=== PATIENT | female | born 1950 | race Asian ===

== ENCOUNTER 2019-01-01 17:21 | Observation (INO) | payer OTHER ==
[~2019-01-01] VITALS: Ht 152.4 cm; Wt 66.3 kg
[~2019-01-01 17:21] MED LIST: ASPI81TA52 PO; ATEN50TA PO; IPRA3AMP29 HHN; LAS20I IV; MET40I IV; METF500T24 PO; NIFE30TA66 PO
[2019-01-01] MEDS ORDERED: DEXTROSE 50% 50 ML SYRINGE IV ONE (20:00)
[2019-01-01] MEDS ORDERED: DEXTROSE 50% 50 ML SYRINGE ONE (20:01)
--- NOTE | 2019-01-01 20:42 | ERD ---
ER Documentation Chief Complaint Chief Complaint chest pain and left arm numbness HPI 68-year-old female with a history of hypertension and diabetes presenting with left-sided chest pain since yesterday with associated tingling in the l right arm. She has mild associated shortness of breath. No alleviating or exacerbating factors. The pain is intermittent, but frequent, nonexertional. ROS All systems reviewed and are negative except as per history of present illness. Medications Home Meds Reported Medications Glimepiride* (Glimepiride*) 4 Mg Tablet, 4 MG PO DAILY for 30 Days, #30 01/01/19 Losartan Potassium* (Losartan Potassium*) 50 Mg Tablet, 50 MG PO DAILY for 30 Days, #30 01/01/19 Amlodipine Besylate* (Amlodipine Besylate*) 5 Mg Tablet, 5 MG PO DAILY for 30 Days, #30 01/01/19 Lovastatin* (Lovastatin*) 10 Mg Tablet, 10 MG PO DAILY for 30 Days, #30 01/01/19 Metformin Hcl* (Metformin Hcl*) 500 Mg Tablet, 500 MG PO BID WITH MEALS, #30 TAB 01/28/16 Aspirin (Low Dose Aspirin) 81 Mg Tablet.dr, 81 MG PO DAILY, #30 TAB 01/28/16 Discontinued Reported Medications Metformin* (Glucophage*) 500 Mg Tab, 500 MG PO BID for 30 Days, #60 01/01/19 Atenolol* (Atenolol*) 50 Mg Tablet, 50 MG PO DAILY, #30 TAB 01/28/16 Discontinued Scripts Nifedipine* (Procardia XL*) 30 Mg Tabsr, 30 MG PO BID, #1 TAB Prov:CHRISTOPHER MONTOYA MD 01/29/16 Methylprednisolone Sodium Succinate (Solu-Medrol) 40 Mg Soln, 40 MG IV Q8, #1 Prov:CHRISTOPHER MONTOYA MD 01/29/16 Ipratropium-Albuterol (Ipratropium-Albuterol) 3 Ml Nebu, 3 ML HHN Q6H RESP THERAPY, #1 Prov:CHRISTOPHER MONTOYA MD 01/29/16 Furosemide* (Lasix*) 10 Mg/Ml Soln, 20 MG IV Q12H, #1 Prov:CHRISTOPHER MONTOYA MD 01/29/16 Allergies Allergies: Coded Allergies: No Known Allergy (Unverified , 01/01/19) PMhx/Soc History of Surgery: No Anesthesia Reaction: No Hx Neurological Disorder: No Hx Respiratory Disorders: Yes (SOB even with short distances) Hx Cardiac Disorders: Yes (HTN) Hx Psychiatric Problems: No Hx Miscellaneous Medical Probl: Yes (DM) Hx Alcohol Use: No Hx Substance Use: No Hx Tobacco Use: No Smoking Status: Never smoker FmHx Family History: No diabetes Physical Exam Vitals Vital Signs Date Temp Pulse Resp B/P (MAP) Pulse Ox O2 O2 Flow FiO2 Time Delivery Rate 01/01/19 86 20 159/77 99 Room Air 23:57 (104) 01/01/19 76 23:46 01/01/19 63 18 194/77 98 Room Air 21:11 (116) 01/01/19 73 19 179/79 97 Room Air 19:31 (112) 01/01/19 97.6 79 19 156/116 99 17:31 (129) Physical Exam Const: No acute distress Head: Atraumatic Eyes: Normal Conjunctiva ENT: Normal External Ears, Nose and Mouth. Neck: Full range of motion. No meningismus. Resp: Clear to auscultation bilaterally Cardio: Regular rate and rhythm, no murmurs. 2+ distal pulses in all 4 extremities Abd: Soft, non tender, non distended. Normal bowel sounds Skin: No petechiae or rashes Back: No midline or flank tenderness Ext: No cyanosis, or edema Neur: Awake and alert Psych: Normal Mood and Affect Result Diagram: 01/01/19200401/01/192004 Results 24 hrs Laboratory Tests Test 01/01/19 19:55 01/01/19 19:58 01/01/19 20:02 01/01/19 20:05 Bedside Glucose 41 mg/dL 52 mg/dL B-Type Natriuretic 280 PG/ML Peptide White Blood Count 11.1 10^3/ul Red Blood Count 4.50 10^6/ul Hemoglobin 12.3 g/dl Hematocrit 37.7 % Mean Corpuscular 83.8 fl Volume Mean Corpuscular 27.3 pg Hemoglobin Mean Corpuscular 32.6 g/dl Hemoglobin Concent Red Cell 13.3 % Distribution Width Platelet Count 337 10^3/UL Mean Platelet 9.8 fl Volume Immature 0.600 % Granulocytes % Neutrophils % 78.4 % Lymphocytes % 14.2 % Monocytes % 5.6 % Eosinophils % 0.9 % Basophils % 0.3 % Nucleated Red Blood 0.0 /100WBC Cells % Immature 0.070 10^3/ul Granulocytes # Neutrophils # 8.7 10^3/ul Lymphocytes # 1.6 10^3/ul Monocytes # 0.6 10^3/ul Eosinophils # 0.1 10^3/ul Basophils # 0.0 10^3/ul Nucleated Red Blood 0.0 10^3/ul Cells # Sodium Level 135 mmol/L Potassium Level 3.8 mmol/L Chloride Level 99 mmol/L Carbon Dioxide 24 mmol/L Level Anion Gap 12 Blood Urea Nitrogen 8 mg/dl Creatinine 0.71 mg/dl Est Glomerular > 60 mL/min Filtrat Rate mL/min Glucose Level 39 mg/dl Calcium Level 9.2 mg/dl Troponin I < 0.012 ng/ml Test 01/01/19 20:28 Bedside Glucose 150 mg/dL Current Medications Medications Dose Sig/Shyam Start Time Status Last (Trade) Ordered Route PRN Stop Time Admin Dose Reason Admin Dextrose 50 ml ONCE ONCE 01/01/19 DC 01/01/19 (D50w IV 20:00 20:06 Syringe) 01/01/19 20:01 Dextrose 50 ml STK-MED 01/01/19 DC (D50w ONCE .ROUTE 20:01 Syringe) 01/01/19 20:02 Ondansetron 4 mg ER BRIDGE 01/01/19 HCl (Zofran PRN IV 22:30 Inj) NAUSEA/VOMITI 01/02/19 22:29 NG 650 mg ER BRIDGE 01/01/19 Acetaminophen PRN PO 22:30 (Tylenol .MILD PAIN 01/02/19 22:29 Tab) 1-3 OR TEMP Procedures/MDM EMERGENT LABS AND DIAGNOSTIC STUDIES: Lab Results above were reviewed and interpreted by me. CBC: no anemia or evidence of infection Accu-Cheks showed hypoglycemia, this was treated BMP: Hyperglycemia, no evidence of clinically significant electrolyte ab normality, acidosis, renal failure Troponin within normal limits, not indicative of cardiac ischemia EKG: Rate/Rhythm: Normal sinus rhythm QRS, ST, T-waves: No changes consistent w/ acute ischemia Impression: No evidence of ischemia or arrhythmia EKG: Rate/Rhythm: Normal Sinus Rhythm QRS, ST, T-waves: QTC prolonged at 508 ms. No changes consistent w/ acute ischemia Impression: No evidence of ischemia or arrhythmia Radiology Results as interpreted by Radiology below were reviewed by Marcela Kee MD: Chest x-ray : No acute abnormalities Initial Nursing notes reviewed. Previous Medical Records requested via the Electronic Health Record. EMERGENCY DEPARTMENT COURSE / MEDICAL DECISION MAKING: Patients symptoms are concerning for a cardiac etiology. Other etiologies considered were PE, aortic dissection, pneumonia, pneumothorax, esophageal rupture. EKG showed no acute ischemia. Initial troponin negative. CXR grossly unremarkable. However patient has an intermediate risk of adverse events. Plan to admit for further evaluation. Patient is not safe for discharge and will need inpatient monitoring and further evaluation. Further workup will be deferred to the inpatient team. Accepting Care Team: Current data and ongoing care discussed. Time: Time of admission Primary Provider: CONSUELO Gutierrez MD Jan 01, 2019 20:42
[2019-01-01] MEDS ORDERED: AMLO-145 PO (21:01)
[2019-01-01] MEDS ORDERED: LOSA50TA14 PO (21:01)
[2019-01-01] MEDS ORDERED: LOVA10TA63 PO (21:01)
[2019-01-01] MEDS ORDERED: METF-849 PO (21:01)
[2019-01-01] MEDS ORDERED: GLIM4TAB PO (21:05)
[2019-01-01] MEDS ORDERED: ACETAMINOPHEN 325 MG TAB PO PRN (22:30)
[2019-01-01] MEDS ORDERED: ONDANSETRON 4 MG INJ IV PRN (22:30)
[2019-01-01 23:46] VITALS: PULSE 76
[2019-01-02] VITALS (12 sets, daily range): BP systolic 134–179; BP diastolic 69–81; PULSE 65–90; RESP 18–71; Ht 152.4 cm; Wt 66.3 kg
[2019-01-02] MEDS ORDERED: NITROGLYCERIN (SL) 0.4 MG TAB SL PRN (02:00)
[2019-01-02] MEDS ORDERED: ACETAMINOPHEN 325 MG TAB PO PRN (02:00)
[2019-01-02] MEDS ORDERED: ALBUTEROL/IPRATROPIUM (NEB) 3 ML AMP HHN PRN (02:00)
[2019-01-02] MEDS ORDERED: NACL 0.9% 3 ML SYG IV SCH (02:00)
--- NOTE | 2019-01-02 08:59 | HP ---
Date/Time of Note Date/Time of Note DATE: 01/02/19 TIME: 08:56 Assessment/Plan VTE Prophylaxis Risk score (from Ns)>0 risk: 6 SCD applied (from Ns): Yes Pharmacological prophylaxis: heparin Lines/Catheters IV [facility] Saline Lock Urinary Cath still in place: No Assessment/Plan Assessment/Plan 1. Chest pain: Rule out ACS -Telemetry monitoring -Supplemental oxygen, aspirin, statin. As needed nitro -Check A1c, fasting lipid and TSH in a.m. -2D echo and cardiology consult 2. Hypoglycemia: Most likely secondary to sulfonylurea -Hold metformin and sulfonylurea 3. Hypertension: Continue home meds. Adjust as needed 4. Dyslipidemia: Continue statin Result Diagram: 01/01/19200401/01/192004 Results 24hrs Laboratory Tests Test 01/01/19 19:55 01/01/19 19:58 01/01/19 20:02 01/01/19 20:05 Bedside Glucose 41 *L 52 L B-Type Natriuretic 280 H Peptide White Blood Count 11.1 #H Red Blood Count 4.50 Hemoglobin 12.3 Hematocrit 37.7 Mean Corpuscular 83.8 Volume Mean Corpuscular 27.3 L Hemoglobin Mean Corpuscular 32.6 Hemoglobin Concent Red Cell 13.3 Distribution Width Platelet Count 337 Mean Platelet Volume 9.8 Immature 0.600 H Granulocytes % Neutrophils % 78.4 H Lymphocytes % 14.2 L Monocytes % 5.6 Eosinophils % 0.9 Basophils % 0.3 Nucleated Red Blood 0.0 Cells % Immature 0.070 H Granulocytes # Neutrophils # 8.7 H Lymphocytes # 1.6 Monocytes # 0.6 Eosinophils # 0.1 Basophils # 0.0 Nucleated Red Blood 0.0 Cells # Sodium Level 135 Potassium Level 3.8 Chloride Level 99 Carbon Dioxide Level 24 Anion Gap 12 Blood Urea Nitrogen 8 Creatinine 0.71 Est Glomerular > 60 Filtrat Rate mL/min Glucose Level 39 *L Calcium Level 9.2 Troponin I < 0.012 Test 01/01/19 20:28 01/02/19 01:07 01/02/19 07:37 Bedside Glucose 150 Creatine Kinase 58 Creatine Kinase 0.9 Index Creatinine Kinase MB 0.53 (Mass) Troponin I < 0.012 White Blood Count Pending Red Blood Count Pending Hemoglobin Pending Hematocrit Pending Mean Corpuscular Pending Volume Mean Corpuscular Pending Hemoglobin Mean Corpuscular Pending Hemoglobin Concent Red Cell Pending Distribution Width Platelet Count Pending Mean Platelet Volume Pending HPI/ROS Admit Date/Time Admit Date/Time Jan 01, 2019 at 22:16 Hx of Present Illness This is a 68-year-old female with a history of hypertension, dyslipidemia and type II diabetes who presents the ER complaining of chest pain. Symptoms been going on for the past 2-3 days. Chest pain is mainly centered in the mid chest. Patient only speaks [place]. When presented to ER, she was found to be hypoglycemic with blood glucose as low as 39. She takes sulfonylurea and metformin at home. Left first troponin is negative and EKG without ST elevation or depression. PMH/Family/Social Past Medical History Medical History: diabetes, high cholesterol, hypertension Medications Current Medications Ondansetron HCl (Zofran Inj) 4 mg ER BRIDGE PRN IV NAUSEA/VOMITING; Start 01/01/19 at 22:30; Stop 01/02/19 at 22:29 Acetaminophen (Tylenol Tab) 650 mg ER BRIDGE PRN PO .MILD PAIN 1-3 OR TEMP; Start 01/01/19 at 22:30; Stop 01/02/19 at 22:29 IV Flush (NS 3 ml) 3 ml PER PROTOCOL IV ; Start 01/02/19 at 02:00 Nitroglycerin (Nitroglycerin (Sl Tab) 0.4 Mg) 1 tab Q5M PRN SL .CHEST PAIN; Start 01/02/19 at 02:00 Acetaminophen (Tylenol Tab) 650 mg Q6H PRN PO .PAIN 1-3 OR TEMP; Start 01/02/19 at 02:00 Heparin Sodium (Porcine) (Heparin (5000 Units/1ml)) 5,000 unit Q12 SC ; Start 01/02/19 at 09:00 Albuterol/ Ipratropium (Duoneb) 3 ml Q2H RESP THERAPY PRN HHN SHORTNESS OF BREATH; Start 01/02/19 at 02:00 Amlodipine Besylate (Norvasc) 5 mg DAILY PO ; Start 01/02/19 at 09:00 Aspirin (Halfprin) 81 mg DAILY PO ; Start 01/02/19 at 09:00 Losartan Potassium (Cozaar) 50 mg DAILY PO ; Start 01/02/19 at 09:00 Atorvastatin Calcium (Lipitor) 10 mg DAILY@21 PO ; Start 01/02/19 at 21:00 Coded Allergies: No Known Allergy (Unverified , 01/01/19) Past Surgical History Past Surgical Hx: no surgical history Family History Significant Family History: no pertinent family hx Social History Alcohol Use: none Smoking Status: Never smoker Drug Use: none Exam/Review of Systems Vital Signs Vitals Vital Signs Date Temp Pulse Resp B/P (MAP) Pulse Ox O2 O2 Flow FiO2 Time Delivery Rate 01/02/19 65 08:31 01/02/19 98.5 18 144/69 100 07:08 (94) 01/01/19 Room Air 23:57 Intake and Output 01/01/19 01/01/19 01/02/19 1515:00 23:00 07:00 IntakeIntake Total 120 ml BalanceBalance 120 ml Exam Constitutional: other (Obese female, lying in bed in no acute distress) Eyes: EOMI, PERRL Neck: supple, non-tender Respiratory: clear to auscultation, normal air movement Cardiovascular: regular rate and rhythm, nl pulses Gastrointestinal: soft, non-tender Extremities: normal pulses EDER SINGH MD Jan 02, 2019 08:59
[2019-01-02] MEDS ORDERED: LOSARTAN 50 MG TAB PO SCH (09:00)
[2019-01-02] MEDS: ASPIRIN (EC) 81 MG TAB PO SCH (09:30)
[2019-01-02] MEDS: AMLODIPINE 5 MG TAB PO SCH (09:30)
[2019-01-02] MEDS: HEPARIN 5,000 UNIT/1 ML VIAL SC SCH ×2 (09:34→22:18)
--- NOTE | 2019-01-02 13:38 | PN ---
Date/Time of Note Date/Time of Note DATE: 01/02/19 TIME: 13:29 Assessment/Plan VTE Prophylaxis Risk score (from Ns)>0 risk: 2 SCD applied (from Ns): Yes Pharmacological prophylaxis: heparin Lines/Catheters IV Catheter Type (from Nrs): Saline Lock Urinary Cath still in place: No Assessment/Plan Assessment/Plan 1. Chest pain, negative troponin, follow up with cardiology 2. Hypoglycemia, due to glimepiride, hold metformin and glimepiride and give D5 3. Hypertension, controlled 4. Dyslipidemia: Continue statin 5. DVT prophylaxis: heparin Result Diagram: 01/02/1973601/02/19 0737 Results 24hrs Laboratory Tests Test 01/01/19 19:55 01/01/19 19:58 01/01/19 20:02 01/01/19 20:05 Bedside Glucose 41 *L 52 L B-Type Natriuretic 280 H Peptide White Blood Count 11.1 #H Red Blood Count 4.50 Hemoglobin 12.3 Hematocrit 37.7 Mean Corpuscular 83.8 Volume Mean Corpuscular 27.3 L Hemoglobin Mean Corpuscular 32.6 Hemoglobin Concent Red Cell 13.3 Distribution Width Platelet Count 337 Mean Platelet Volume 9.8 Immature 0.600 H Granulocytes % Neutrophils % 78.4 H Lymphocytes % 14.2 L Monocytes % 5.6 Eosinophils % 0.9 Basophils % 0.3 Nucleated Red Blood 0.0 Cells % Immature 0.070 H Granulocytes # Neutrophils # 8.7 H Lymphocytes # 1.6 Monocytes # 0.6 Eosinophils # 0.1 Basophils # 0.0 Nucleated Red Blood 0.0 Cells # Sodium Level 135 Potassium Level 3.8 Chloride Level 99 Carbon Dioxide Level 24 Anion Gap 12 Blood Urea Nitrogen 8 Creatinine 0.71 Est Glomerular > 60 Filtrat Rate mL/min Glucose Level 39 *L Calcium Level 9.2 Troponin I < 0.012 Test 01/01/19 20:28 01/02/19 01:07 01/02/19 07:37 01/02/19 10:26 Bedside Glucose 150 87 Creatine Kinase 58 60 Creatine Kinase 0.9 0.8 Index Creatinine Kinase MB 0.53 0.47 (Mass) Troponin I < 0.012 < 0.012 White Blood Count 10.4 Red Blood Count 4.51 Hemoglobin 12.3 Hematocrit 37.6 Mean Corpuscular 83.4 Volume Mean Corpuscular 27.3 L Hemoglobin Mean Corpuscular 32.7 Hemoglobin Concent Red Cell 13.6 Distribution Width Platelet Count 348 Mean Platelet Volume 9.9 Immature 0.300 Granulocytes % Neutrophils % 75.9 Lymphocytes % 16.6 Monocytes % 5.7 Eosinophils % 1.2 Basophils % 0.3 Nucleated Red Blood 0.0 Cells % Immature 0.030 Granulocytes # Neutrophils # 7.9 H Lymphocytes # 1.7 Monocytes # 0.6 Eosinophils # 0.1 Basophils # 0.0 Nucleated Red Blood 0.0 Cells # Sodium Level 139 Potassium Level 4.5 Chloride Level 103 Carbon Dioxide Level 24 Anion Gap 12 Blood Urea Nitrogen 8 Creatinine 0.72 Est Glomerular > 60 Filtrat Rate mL/min Glucose Level 31 *L Hemoglobin A1c 5.7 Calcium Level 9.3 Total Bilirubin 0.2 Direct Bilirubin 0.00 Indirect Bilirubin 0.2 Aspartate Amino 22 Transf (AST/SGOT) Alanine 22 Aminotransferase (AL T/SGPT) Alkaline Phosphatase 89 Total Protein 6.9 Albumin 3.8 Globulin 3.10 Albumin/Globulin 1.22 Ratio Triglycerides Level 79 Cholesterol Level 149 LDL Cholesterol, 79 Calculated HDL Cholesterol 54 Cholesterol/HDL 2.7 Ratio Thyroid Stimulating 4.100 Hormone (TSH) Test 01/02/19 12:31 Bedside Glucose 82 Subjective 24 Hr Interval Summary Free Text/Dictation no cough or shortness of breath, no dysuria. Minimal central chest pain, no tenderness Exam/Review of Systems Exam Vitals Vital Signs Date Temp Pulse Resp B/P (MAP) Pulse Ox O2 O2 Flow FiO2 Time Delivery Rate 01/02/19 98.2 78 20 134/72 98 11:16 (92) 01/01/19 Room Air 23:57 Intake and Output 01/01/19 01/01/19 01/02/19 1515:00 23:00 07:00 IntakeIntake Total 120 ml BalanceBalance 120 ml Constitutional: alert, oriented, well developed Psych: no complaints, nl mood/affect Head: normocephalic, atraumatic Eyes: nl conjunctiva, EOMI, nl lids ENMT: nl external ears & nose, nl lips & teeth, nl nasal mucosa & septum Neck: supple, non-tender Respiratory: clear to auscultation, normal air movement Cardiovascular: regular rate and rhythm, nl pulses; No bruits, No diastolic murmur, No edema, No gallop, No irregular rhythm, No jugular venous distention (JVD), No murmurs/extra sounds, No rub, No systolic murmur, No S3, No S4, No other Gastrointestinal: soft, nl liver, spleen, non-tender Musculoskeletal: nl extremities to inspection Extremities: normal pulses; No calf tenderness, No cyanosis, No clubbing, No edema, No pitting pedal edema, No palpable cord, No tenderness, No other Neurological: ACOUSTIC ENGINEER II-XII intact, nl mental status, nl speech, nl strength Results Results 24hrs Laboratory Tests Test 01/01/19 19:55 01/01/19 19:58 01/01/19 20:02 01/01/19 20:05 Bedside Glucose 41 *L 52 L B-Type Natriuretic 280 H Peptide White Blood Count 11.1 #H Red Blood Count 4.50 Hemoglobin 12.3 Hematocrit 37.7 Mean Corpuscular 83.8 Volume Mean Corpuscular 27.3 L Hemoglobin Mean Corpuscular 32.6 Hemoglobin Concent Red Cell 13.3 Distribution Width Platelet Count 337 Mean Platelet Volume 9.8 Immature 0.600 H Granulocytes % Neutrophils % 78.4 H Lymphocytes % 14.2 L Monocytes % 5.6 Eosinophils % 0.9 Basophils % 0.3 Nucleated Red Blood 0.0 Cells % Immature 0.070 H Granulocytes # Neutrophils # 8.7 H Lymphocytes # 1.6 Monocytes # 0.6 Eosinophils # 0.1 Basophils # 0.0 Nucleated Red Blood 0.0 Cells # Sodium Level 135 Potassium Level 3.8 Chloride Level 99 Carbon Dioxide Level 24 Anion Gap 12 Blood Urea Nitrogen 8 Creatinine 0.71 Est Glomerular > 60 Filtrat Rate mL/min Glucose Level 39 *L Calcium Level 9.2 Troponin I < 0.012 Test 01/01/19 20:28 01/02/19 01:07 01/02/19 07:37 01/02/19 10:26 Bedside Glucose 150 87 Creatine Kinase 58 60 Creatine Kinase 0.9 0.8 Index Creatinine Kinase MB 0.53 0.47 (Mass) Troponin I < 0.012 < 0.012 White Blood Count 10.4 Red Blood Count 4.51 Hemoglobin 12.3 Hematocrit 37.6 Mean Corpuscular 83.4 Volume Mean Corpuscular 27.3 L Hemoglobin Mean Corpuscular 32.7 Hemoglobin Concent Red Cell 13.6 Distribution Width Platelet Count 348 Mean Platelet Volume 9.9 Immature 0.300 Granulocytes % Neutrophils % 75.9 Lymphocytes % 16.6 Monocytes % 5.7 Eosinophils % 1.2 Basophils % 0.3 Nucleated Red Blood 0.0 Cells % Immature 0.030 Granulocytes # Neutrophils # 7.9 H Lymphocytes # 1.7 Monocytes # 0.6 Eosinophils # 0.1 Basophils # 0.0 Nucleated Red Blood 0.0 Cells # Sodium Level 139 Potassium Level 4.5 Chloride Level 103 Carbon Dioxide Level 24 Anion Gap 12 Blood Urea Nitrogen 8 Creatinine 0.72 Est Glomerular > 60 Filtrat Rate mL/min Glucose Level 31 *L Hemoglobin A1c 5.7 Calcium Level 9.3 Total Bilirubin 0.2 Direct Bilirubin 0.00 Indirect Bilirubin 0.2 Aspartate Amino 22 Transf (AST/SGOT) Alanine 22 Aminotransferase (AL T/SGPT) Alkaline Phosphatase 89 Total Protein 6.9 Albumin 3.8 Globulin 3.10 Albumin/Globulin 1.22 Ratio Triglycerides Level 79 Cholesterol Level 149 LDL Cholesterol, 79 Calculated HDL Cholesterol 54 Cholesterol/HDL 2.7 Ratio Thyroid Stimulating 4.100 Hormone (TSH) Test 01/02/19 12:31 Bedside Glucose 82 Medications Medication Current Medications Ondansetron HCl (Zofran Inj) 4 mg ER BRIDGE PRN IV NAUSEA/VOMITING; Start 01/01/19 at 22:30; Stop 01/02/19 at 22:29 Acetaminophen (Tylenol Tab) 650 mg ER BRIDGE PRN PO .MILD PAIN 1-3 OR TEMP; Start 01/01/19 at 22:30; Stop 01/02/19 at 22:29 IV Flush (NS 3 ml) 3 ml PER PROTOCOL IV ; Start 01/02/19 at 02:00 Nitroglycerin (Nitroglycerin (Sl Tab) 0.4 Mg) 1 tab Q5M PRN SL .CHEST PAIN; Start 01/02/19 at 02:00 Acetaminophen (Tylenol Tab) 650 mg Q6H PRN PO .PAIN 1-3 OR TEMP; Start 01/02/19 at 02:00 Heparin Sodium (Porcine) (Heparin (5000 Units/1ml)) 5,000 unit Q12 SC Last administered on 01/02/19at 09:34; Admin Dose 5,000 UNIT; Start 01/02/19 at 09:00 Albuterol/ Ipratropium (Duoneb) 3 ml Q2H RESP THERAPY PRN HHN SHORTNESS OF BREATH; Start 01/02/19 at 02:00 Amlodipine Besylate (Norvasc) 5 mg DAILY PO Last administered on 01/02/19at 09:30; Admin Dose 5 MG; Start 01/02/19 at 09:00 Aspirin (Halfprin) 81 mg DAILY PO Last administered on 01/02/19at 09:30; Admin Dose 81 MG; Start 01/02/19 at 09:00 Losartan Potassium (Cozaar) 50 mg DAILY PO Last administered on 01/02/19at 09:21; Admin Dose 50 MG; Start 01/02/19 at 09:00 Atorvastatin Calcium (Lipitor) 10 mg DAILY@21 PO ; Start 01/02/19 at 21:00 ASCENCION VALLEJO MD Jan 02, 2019 13:38
[2019-01-02] MEDS: D5W-0.45 NACL + KCL 10 MEQ 1,000 ML IV SCH (15:08)
[2019-01-02] MEDS: LOSARTAN 50 MG TAB PO SCH (20:47)
[2019-01-02] MEDS ORDERED: ATORVASTATIN 10 MG TAB PO SCH (21:00)
--- NOTE | 2019-01-02 23:05 | CONS ---
DATE OF ADMISSION: 01/01/2019 DATE OF CONSULTATION: 01/02/2019 REASON FOR CONSULTATION: Chest pain, assess for acute coronary syndrome. REQUESTING PHYSICIAN: Dr. Vallejo from the hospitalist service. HISTORY OF PRESENT ILLNESS: Ms. Marin is a 68-year-old female with a history of hypertension, dyslip idemia and diabetes mellitus, who presented with complaints of substernal chest pain. The patient de scribes the chest pain as a stabbing to pressure-like component located in the midportion of her ches t. Upon arrival to the emergency department, temperature 97.6, blood pressure 156/116, pulse 79, res piratory rate 19, satting 99%. The patient's labs revealed white count 11.1, hemoglobin 12.3, platel et count 337. Sodium of 135, potassium 3.8, creatinine 0.7, BUN 8, troponin negative. BNP 280. Glu cose 41. The patient underwent a chest x-ray revealing mild cardiomegaly, pulmonary vascular congest ion. The patient's electrocardiogram, normal sinus rhythm at a rate of 69, borderline increased QT c orrected interval, normal axis, nonspecific ST and T-wave abnormalities. The patient will be admitte d to the floor, and since admit to floor, has had 2 additional troponins negative, ruling out for acu te myocardial infarction. PAST MEDICAL HISTORY: As above in HPI. MEDICATIONS CURRENTLY IN HOSPITAL: 1. Lipitor 10 mg at bedtime. 2. Norvasc 5 mg daily. 3. Aspirin 81 mg daily. 4. Cozaar 50 mg daily. 5. Celexa p.r.n. 6. Tylenol p.r.n. 7. DuoNebs p.r.n. 8. Zofran p.r.n. 9. Tylenol p.r.n. ALLERGIES: NO KNOWN DRUG ALLERGIES. SOCIAL HISTORY: No current tobacco, ETOH or illicit drug use. FAMILY HISTORY: No history of sudden cardiac or early CAD. REVIEW OF SYSTEMS: As above in HPI. CONSTITUTIONAL: No fevers or chills. PULMONARY: No current shortness of breath. CARDIOVASCULAR: No current chest pain. GASTROINTESTINAL: No vomiting. GENITOURINARY: No hematuria. MUSCULOSKELETAL: Degenerative joint disease. PSYCHIATRIC: The patient denies depression. NEUROLOGIC: No documented history of CVA. ENDOCRINE: Diabetes mellitus. PHYSICAL EXAMINATION: VITAL SIGNS: Temperature of 98.2, blood pressure 134/70, pulse 78, respiratory rate of 20, sat 98%. GENERAL: The patient is alert, awake, in no acute distress. NECK: JVP approximately 8 to 9 cm of water. CHEST: Fair air movement throughout. HEART: Regular rate and rhythm. Normal S1 and S2, I/ systolic murmur, nondisplaced PMI. ABDOMEN: Positive bowel sounds, soft. EXTREMITIES: No significant pitting edema, 1+ pulses bilateral posterior tibial. LABORATORY DATA: Most recently from today, sodium 139, potassium 4.5, creatinine 0.7, BUN 8. White count 10.4, hemoglobin 12.3, platelet count of 348. IMAGING STUDIES: As above in HPI. No further imaging studies for my review at this time. ECG: As above in HPI. No further electrograms for my review at this time. IMPRESSION: 1. Chest pain, assess for acute coronary syndrome with negative troponins x3 at this time. 2. Abnormal echocardiogram, assess for acute coronary syndrome. 3. Hypertension. Doppler was normal. 4. 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 5. Dyslipidemia. 6. Diabetes mellitus with borderline episodes of hypoglycemia. RECOMMENDATIONS: 1. At this time, would maintain the patient on telemetry monitoring to follow rhythm and rates close ly. 2. Continue the patient's baseline losartan and Norvasc, control blood pressure with possible need t o up titrate to improve overall systolic blood pressure . 3. Continue her aspirin for prophylaxis against cardiovascular events. 4. Continue the patient's statin and adjust it according to the patient's fasting lipid panel to be checked. 5. We will check a 2D echo for this patient's ejection fraction, wall motion, rule out major abnorma lities. We will give the patient gentle Lasix diuresis due to findings of congestive heart failure b y chest x-ray and thus will decrease the patient's IV fluid rate at this time. 6. We will consider a possible Lexiscan stress test in this patient in a.m. to further assess the po ssibility of ischemia lending to symptoms of chest pain. Thank you for allowing me to take part in the care of this patient. I will continue to follow closel y with you with recommendations to be made as the patient progresses through her inpatient hospital c linical course. Dictated By: HELGA JERNIGAN/NICKI Conf#: [id number] DID#: [id number] CC: ASCENCION VALLEJO MD; EDER SINGH MD;*EndCC*
[2019-01-03] VITALS (8 sets, daily range): BP systolic 134–189; BP diastolic 73–88; PULSE 89–116; RESP 18–19
[2019-01-03] MEDS: D5W-0.45 NACL + KCL 10 MEQ 1,000 ML IV SCH (03:55)
[2019-01-03] MEDS ORDERED: FUROSEMIDE 20 MG INJ IV SCH (09:00)
[2019-01-03] MEDS: HEPARIN 5,000 UNIT/1 ML VIAL SC SCH (09:00)
[2019-01-03] MEDS: LOSARTAN 50 MG TAB PO SCH (09:37)
[2019-01-03] MEDS: ASPIRIN (EC) 81 MG TAB PO SCH (09:37)
[2019-01-03] MEDS: AMLODIPINE 5 MG TAB PO SCH (09:37)
[2019-01-03] MEDS ORDERED: REGADENOSON 0.4 MG/5 ML SYG ONE (10:37)
--- NOTE | 2019-01-03 11:44 | CONS ---
Assessment/Plan Assessment/Plan Hospital Course (Demo Recall) IMPRESSION: 1. Chest pain, assess for acute coronary syndrome with negative troponins x3 at this time. 2. Abnormal echocardiogram, assess for acute coronary syndrome. 3. Hypertension. Doppler was normal. 4. Congestive heart failure by chest x-ray, question systolic versus diastolic, likely acute on chronic. 5. Dyslipidemia. 6. Diabetes mellitus with borderline episodes of hypoglycemia. Recc: -Tele -serial ecg's -F/U BP after recieving losartan/norvasc -Contineu asa -Contineu daily jigar and fololow volume status closely -Lexiscan stress test today Consultation Date/Type/Reason Admit Date/Time Jan 01, 2019 at 22:16 Initial Consult Date 01/02/19 Type of Consult Cardiology Reason for Consultation chest pain Requesting Provider: ASCENCION VALLEJO MD Date/Time of Note DATE: 01/03/19 TIME: 11:40 Exam/Review of Systems Vital Signs Vitals Vital Signs Date Temp Pulse Resp B/P (MAP) Pulse Ox O2 O2 Flow FiO2 Time Delivery Rate 01/03/19 108 08:47 01/03/19 98.7 19 177/86 97 07:15 (116) 01/03/19 Room Air 04:00 Intake and Output 01/02/19 01/02/19 01/03/19 1515:00 23:00 07:00 IntakeIntake Total 585 ml 1625 ml BalanceBalance 585 ml 1625 ml Exam Exam Review of Systems: CONSTITUTIONAL: No fevers, chills. PULMONARY: No sob CARDIOVASCULAR:intermittent chest pain GASTROINTESTINAL: No nausea/vomiting. GENITOURINARY: No hematuria/dysuria. MUSCULOSKELETAL: No myagias/arthalgias. PSYCHIATRIC: The patient denies depression. NEUROLOGIC: No weakness Constitutional: alert Psych: no complaints Head: normocephalic ENMT: mucosa pink and moist Neck: supple, jvd (9 cm water) Respiratory: diminished breath sounds (at bases/B) Cardiovascular: regular rate and rhythm Gastrointestinal: soft, non-tender Musculoskeletal: muscle tone (normal) Extremities: edema (none) Neurological: other (No focal deficits) Labs Result Diagram: 01/03/19 0540 01/03/19 0540 Results 24hrs Laboratory Tests Test 01/02/19 12:31 01/02/19 17:40 01/02/19 18:21 01/02/19 20:45 Bedside Glucose 82 115 146 Urine Color COLORLESS Urine Clarity CLEAR Urine pH 8.0 Urine Specific 1.003 [place] Urine Ketones NEGATIVE Urine Nitrite NEGATIVE Urine Bilirubin NEGATIVE Urine Urobilinogen NEGATIVE Urine Leukocyte NEGATIVE Esterase Urine Hemoglobin NEGATIVE Urine Glucose NEGATIVE Urine Total Protein NEGATIVE Test 01/03/19 05:40 01/03/19 09:34 White Blood Count 9.7 Red Blood Count 4.97 Hemoglobin 13.4 Hematocrit 41.8 Mean Corpuscular 84.1 Volume Mean Corpuscular 27.0 L Hemoglobin Mean Corpuscular 32.1 Hemoglobin Concent Red Cell 14.1 Distribution Width Platelet Count 382 Mean Platelet Volume 10.0 Immature 0.300 Granulocytes % Neutrophils % 72.3 Lymphocytes % 18.7 Monocytes % 7.0 Eosinophils % 1.2 Basophils % 0.5 Nucleated Red Blood 0.0 Cells % Immature 0.030 Granulocytes # Neutrophils # 7.0 Lymphocytes # 1.8 Monocytes # 0.7 Eosinophils # 0.1 Basophils # 0.1 Nucleated Red Blood 0.0 Cells # Sodium Level 140 Potassium Level 4.9 Chloride Level 106 Carbon Dioxide Level 25 Anion Gap 9 Blood Urea Nitrogen 10 Creatinine 0.88 Est Glomerular > 60 Filtrat Rate mL/min Glucose Level 137 # Calcium Level 9.6 Phosphorus Level 4.5 Magnesium Level 2.3 Bedside Glucose 112 Medications Medications Current Medications IV Flush (NS 3 ml) 3 ml PER PROTOCOL IV ; Start 01/02/19 at 02:00 Nitroglycerin (Nitroglycerin (Sl Tab) 0.4 Mg) 1 tab Q5M PRN SL .CHEST PAIN; Start 01/02/19 at 02:00 Acetaminophen (Tylenol Tab) 650 mg Q6H PRN PO .PAIN 1-3 OR TEMP; Start 01/02/19 at 02:00 Heparin Sodium (Porcine) (Heparin (5000 Units/1ml)) 5,000 unit Q12 SC Last administered on 01/03/19at 09:00; Admin Dose 5,000 UNIT; Start 01/02/19 at 09:00 Albuterol/ Ipratropium (Duoneb) 3 ml Q2H RESP THERAPY PRN HHN SHORTNESS OF BREATH; Start 01/02/19 at 02:00 Amlodipine Besylate (Norvasc) 5 mg DAILY PO Last administered on 01/03/19at 0 9:37; Admin Dose 5 MG; Start 01/02/19 at 09:00 Aspirin (Halfprin) 81 mg DAILY PO Last administered on 01/03/19 09:37; Admin Dose 81 MG; Start 01/02/19 at 09:00 Atorvastatin Calcium (Lipitor) 10 mg DAILY@21 PO Last administered on 01/02/19at 20:46; Admin Dose 10 MG; Start 01/02/19 at 21:00 Potassium Chloride/Dextrose/ Sod Cl 1,000 ml @ 75 mls/hr [id number] IV Last administered on 01/03/19at 03:55; Admin Dose 75 MLS/HR; Start 01/02/19 at 14:30 Losartan Potassium (Cozaar) 50 mg BID PO Last administered on 01/03/19 09:37; Admin Dose 50 MG; Start 01/02/19 at 21:00 Furosemide (Lasix) 20 mg DAILY IV Last administered on 01/03/19at 09:38; Admin Dose 20 MG; Start 01/03/19 at 09:00 HELGA FLORES Jan 03, 2019 11:44
--- NOTE | 2019-01-03 14:54 | DS ---
Date/Time of Note Date/Time of Note DATE: 01/03/19 TIME: 14:51 Discharge Summary Admission/Discharge Info Admit Date/Time Jan 01, 2019 at 22:16 Discharge Date/Time Patient Condition: Stable Procedures PROCEDURE: Lexiscan myocardial perfusion study CLINICAL INDICATION: 68 -year-old patient complaining of chest pain. TECHNIQUE: Lexiscan 0.4 mg intravenously separate acquisition gated myocardial perfusion SPECT using Tc 99m Myoview 26.3 mCi intravenously at stress and Tc-99m Myoview, 9.0 mCi intravenously at rest was performed using the rest/stress sequence. Poststress Myoview SPECT images were obtained in the supine position. COMPARISON: No prior studies. FINDINGS: Perfusion images reveal no evidence of perfusion defects. Lexiscan post stress gated SPECT images demonstrate no wall motion abnormalities. IMPRESSION: 1. No evidence of perfusion defects. 2. No wall motion abnormalities. 3. The left ventricle ejection fraction at stress is greater than 70%. A call report was made to Dr. Swain at 12:58 p.m. on January 03, 2019 RPTAT: HH .Norma Marmolejo MD, MD Date Time Electronically viewed and signed by .Norma Marmolejo MD, MD on 01/03/2019 12:59 .L/ Hospital Course This is a 68-year-old female with a history of hypertension, dyslipidemia and type II diabetes who presents the ER complaining of chest pain. Symptoms been going on for the past 2-3 days. Chest pain is mainly centered in the mid chest. Patient only speaks [place]. When presented to ER, she was found to be hypoglycemic with blood glucose as low as 39. She takes sulfonylurea and metformin at home. Left first troponin is negative and EKG without ST elevation or depression. For chest pain, chest pain resolved. Troponin is negative, stress thallium test is negative. Chest pain is considered musculoskeletal. Patient hypoglycemia. Metformin and glimepiride are on hold. Hypoglycemia resolved. I will resume metformina nd keep holding glimepiride and follow up with PCP to decide whether to restart glimepiride. Home Meds Reported Medications Losartan Potassium* (Losartan Potassium*) 50 Mg Tablet, 50 MG PO DAILY for 30 Days, #30 01/01/19 Amlodipine Besylate* (Amlodipine Besylate*) 5 Mg Tablet, 5 MG PO DAILY for 30 Days, #30 01/01/19 Lovastatin* (Lovastatin*) 10 Mg Tablet, 10 MG PO DAILY for 30 Days, #30 01/01/19 Metformin Hcl* (Metformin Hcl*) 500 Mg Tablet, 500 MG PO BID WITH MEALS, #30 TAB 01/28/16 Aspirin (Low Dose Aspirin) 81 Mg Tablet.dr, 81 MG PO DAILY, #30 TAB 01/28/16 Discontinued Reported Medications Glimepiride* (Glimepiride*) 4 Mg Tablet, 4 MG PO DAILY for 30 Days, #30 01/01/19 Metformin* (Glucophage*) 500 Mg Tab, 500 MG PO BID for 30 Days, #60 01/01/19 Atenolol* (Atenolol*) 50 Mg Tablet, 50 MG PO DAILY, #30 TAB 01/28/16 Discontinued Scripts Nifedipine* (Procardia XL*) 30 Mg Tabsr, 30 MG PO BID, #1 TAB Prov:CHRISTOPHER MONTOYA MD 01/29/16 Methylprednisolone Sodium Succinate (Solu-Medrol) 40 Mg Soln, 40 MG IV Q8, #1 Prov:CHRISTOPHER MONTOYA MD 01/29/16 Ipratropium-Albuterol (Ipratropium-Albuterol) 3 Ml Nebu, 3 ML HHN Q6H RESP THERAPY, #1 Prov:CHRISTOPHER MONTOYA MD 01/29/16 Furosemide* (Lasix*) 10 Mg/Ml Soln, 20 MG IV Q12H, #1 Prov:CHRISTOPHER MONTOYA MD 01/29/16 Follow-up Plan PCP in one week Primary Care Provider Not On Staff Doctor Pending Labs Laboratory Tests Test 01/02/19 17:40 01/02/19 18:21 01/02/19 20:45 01/03/19 05:40 Urine Color COLORLESS (YELL OW) Urine Clarity CLEAR (CLEAR) Urine pH 8.0 (5.0-9.0) Urine Specific 1.003 (1.003-1. [place] 030) Urine Ketones NEGATIVE mg/dL (NEGATIVE ) Urine Nitrite NEGATIVE mg/dL (NEGATIVE ) Urine NEGATIVE Bilirubin mg/dL (NEGATIVE ) Urine NEGATIVE Urobilinogen mg/dL (NEGATIVE ) Urine Leukocyte NEGATIVE [place]/ul Esterase Urine NEGATIVE Hemoglobin mg/dL (NEGATIVE ) Urine Glucose NEGATIVE mg/dL (NEGATIVE ) Urine Total NEGATIVE Protein mg/dl (NEGATIVE ) Bedside 115 146 Glucose mg/dL (70-220) mg/dL (70-220) White Blood 9.7 Count 10^3/ul (4.8-1 0.8) Red Blood 4.97 Count 10^6/ul (4.20- 5.40) Hemoglobin 13.4 g/dl (12.0-16. 0) Hematocrit 41.8 % (37.0-47.0) Mean 84.1 Corpuscular fl (82.0-101.0 Volume ) Mean 27.0 Corpuscular pg (29.0-33.0) Hemoglobin Mean 32.1 Corpuscular g/dl (32.0-37. Hemoglobin Conc 0) ent Red Cell 14.1 Distribution % (11.5-14.5) Width Platelet Count 382 10^3/UL (140-4 15) Mean Platelet 10.0 Volume fl (7.4-10.4) Immature 0.300 Granulocytes % % (0.001-0.429 ) Neutrophils % 72.3 % (39.0-77.0) Lymphocytes % 18.7 % (15.0-51.0) Monocytes % 7.0 % (0.0-11.0) Eosinophils % 1.2 % (0.0-7.0) Basophils % 0.5 % (0.0-2.0) Nucleated Red 0.0 Blood Cells % /100WBC (0.0-0 .0) Immature 0.030 Granulocytes # 10^3/ul (0.0-0 .031) Neutrophils # 7.0 10^3/ul (1.6-7 .5) Lymphocytes # 1.8 10^3/ul (0.8-2 .9) Monocytes # 0.7 10^3/ul (0.3-0 .9) Eosinophils # 0.1 10^3/ul (0.0-0 .5) Basophils # 0.1 10^3/ul (0.0-0 .1) Nucleated Red 0.0 Blood Cells # 10^3/ul (0.0-0 .0) Sodium Level 140 mmol/L (135-14 4) Potassium 4.9 Level mmol/L (3.5-5. 1) Chloride Level 106 mmol/L (97-110 ) Carbon Dioxide 25 Level mmol/L (21-31) Anion Gap 9 (5-13) Blood Urea 10 Nitrogen mg/dl (7-20) Creatinine 0.88 mg/dl (0.44-1. 00) Est Glomerular > 60 Filtrat mL/min (>60) Rate mL/min Glucose Level 137 mg/dl (70-220) Calcium Level 9.6 mg/dl (8.4-10. 2) Phosphorus 4.5 Level mg/dl (2.5-4.9 ) Magnesium 2.3 Level mg/dl (1.7-2.5 ) Test 01/03/19 09:34 Bedside 112 Glucose mg/dL (70-220) ASCENCION VALLEJO MD Jan 03, 2019 14:54
--- NOTE | 2019-01-03 15:01 | CARRPT ---
DATE OF PROCEDURE: 01/03/2019 TYPE OF PROCEDURE: Lexiscan Cardiolite stress test, electrocardiogram portion. REASON FOR STRESS TESTING: Chest pain, assess for ischemia. BASELINE VITAL SIGNS AND ELECTROCARDIOGRAM: Pulse 107, blood pressure 137/79. Electrocardiogram rev ealed sinus tachycardia, rate 107, normal axis, normal intervals, anterior T-wave inversion, inferior T-wave inversion. PROCEDURE IN DETAILS: The patient underwent standard Lexiscan infusion protocol over 10 seconds foll owed by radiolabeled tracer. The patient's test was stopped due to completion of protocol. Maximal achieved blood pressure during the test was 140/82. Maximum heart rate during the test was 130. ELECTROCARDIOGRAM FINDINGS: The patient did not develop any new Lexiscan-induced ST or T-wave change s from baseline abnormalities. No documented PVCs. SYMPTOMS: The patient had no complaints of chest pain or shortness breath during stress testing. IMPRESSION: 1. No Lexiscan-induced ST or T-wave changes from baseline abnormalities diagnostic of cardiac ischem ia. 2. No complaints of chest pain or shortness breath during stress testing. 3. No documented premature ventricular contractions during stress testing. 4. Report of nuclear images to follow in separate dictation. Dictated By: HELGA JERNIGAN/NICKI Conf#: [id number] DID#: [id number] CC: ASCENCION VALLEJO MD; EDER SINGH MD;*End*
== END 2019-01-03 17:18 | disposition home or self-care (01) ==
LOC: E/R 17:21 → TEL 22:16
PROVIDERS: ADMIT Internal Medicine; ATTEND Internal Medicine
DX: R07.9 Chest pain, unspecified (principal); E11.649 Type 2 diabetes mellitus with hypoglycemia without coma; I10 Essential (primary) hypertension; E78.5 Hyperlipidemia, unspecified; E11.9 Type 2 diabetes mellitus without complications; Z79.84 Long term (current) use of oral hypoglycemic drugs; Z79.82 Long term (current) use of aspirin
CPT/HCPCS: 71045; 78452; 80048; 80053; 80061; 81003; 82550; 82553; 82962; 83036; 83735; 83880; 84100; 84443; 84484; 85025; 93005; 93017; 96374; A9500; A9505; J1644; J1940; J2785; J3480; Z7500; Z7502; Z7610; G0378